=== PATIENT | male | born 1945 | race Caucasian/White ===

== ENCOUNTER 2023-09-13 08:17 | Emergency (ER) | payer MEDICARE, BC, SELFPAY ==
[2023-09-13] VITALS (16 sets, daily range): BP systolic 143–174; BP diastolic 90–101; PULSE 66–80; RESP 20; TEMP 36.6; O2SAT 88–99; BMI 19.8
--- NOTE | 2023-09-13 08:33 | ED_ITS ---
HPI - General Adult General Time Seen by Provider: 08:33 Date Seen: 09/13/23 Chief complaint: Dizziness/Vertigo Stated complaint: Dizziness, High BP Time Seen by Provider: 09/13/23 08:32 Source: patient Mode of arrival: ambulatory Limitations: no limitations History of Present Illness HPI narrative: Michael is a 77-year-old male past medical history includes hypertension and hyperlipidemia presents emergency department via private car with elevated blood pressure readings and dizziness. Patient states over the last couple days he has had episodic dizziness, this occurred once when he was standing a couple days ago, he explains it as changes in vision, with both eyes, going to one side versus the other, causing him to lean or be unsteady to that side, episodes last 10-15 minute, at one time he almost walked into the wall on the left. He woke up this morning and had it while sitting in bed, and while he got dressed, seemed to get better after 10-15 minutes, he walked downstairs with no difficulty, had a bowl of cereal and orange juice. Denies any difficulty with speaking or swallowing, he had this head fullness but no real headache. He ended up taking his blood pressure, 160/106 he then repeated it, 167/107, they call to make an appointment with his primary care and align a clinic, he was advised to come to the emergency department. Patient has not had anything like this in the past, denies any chest pain or shortness of breath, patient denies any recent illness, no congestion, ear pain or sore throat, patient denies any focal weakness, paresthesias or tingling. 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 Patient denies any changes with head movement. No changes in patient's vision at this time. Denies symptoms of lightheadedness, no changes with standing. No history of any CAD or stroke. Patient has had some bilateral tinnitus which is chronic. When symptoms arise it is not continuous, again no worsening of symptoms with head or body movements, does not triggered by anything. Patient has no symptoms at this time.. Related Data Home Medications Medication Instructions Recorded Confirmed apremilast 30 mg tablet (Otezla) 30 mg PO BID 09/13/23 09/13/23 atorvastatin 40 mg tablet 40 mg PO DAILY 09/13/23 09/13/23 lisinopril 10 mg tablet 10 mg PO DAILY 09/13/23 09/13/23 propranolol 10 mg tablet 10 mg PO PRN 09/13/23 09/13/23 sildenafil 50 mg tablet PO 09/13/23 Previous Rx's Medication Instructions Recorded meclizine 25 mg tablet 25 mg PO QID 3 days #12 tabs 09/13/23 Allergies Allergy/AdvReac Type Severity Reaction Status Date / Time Lyme Disease vaccine AdvReac Intermediate Verified 09/13/23 08:30 (recombinant O Review of Systems Status of ROS: Reports: 10 or more systems reviewed and unremarkable except as noted in History and below Exam Narrative: Exam Narrative: General: No obvious distress, sitting comfortably HEENT: Bilateral cerumen impaction, pupils equal round reactive to light, extraocular muscles intact, symmetrical smile, Oropharynx is clear and moist Neck: Supple, full range of motion Heart: Normal sinus rhythm S1-S2 Lungs: Clear to auscultation bilaterally Abdomen: Soft nontender bowel sounds present Muscle skeletal: +5 strength upper lower extremities [place]: No appreciable nystagmus noted, patient asymptomatic Neuro: Alert awake and oriented x3, no symptoms upon gait, no unsteadiness Cranial nerves 2-12 grossly intact Const: Vital Signs, click to edit/add: Vital Signs - 24 hr 09/13/23 08:23 09/13/23 08:52 Temperature 97.9 F Pulse Rate [Right Pulse Oximeter] 71 Pulse Rate [orthos tatic lying Pulse Oximeter] 69 Pulse Rate [orthos tatic sitting Puls e Oximeter] 72 Pulse Rate [orthos tatic standing Pul se Oximeter] 73 Respiratory Rate 20 Blood Pressure [Ri ght Upper Arm] 174/101 H Blood Pressure [or thostatic lying Le ft Arm] 157/90 H Blood Pressure [or thostatic sitting Left Arm] 161/93 H Blood Pressure [or thostatic standing Left Arm] 150/90 H Pulse Oximetry 99 Oxygen Delivery Me thod Room Air Course Course ED Course: AIDET performed, vitals show blood pressure 143/90, vitals otherwise normal, workup will include IV peripheral, will obtain orthostatics, TSH, point of care troponin, EKG, CBC, CMP and magnesium. Life-threatening differential diagnosis include CVA, other considerations is BPPV, labyrinthitis, Meniere's disease, vestibular neuritis, migraine, MS, otitis media, viral syndrome as well as all etiologies. No cranial nerve abnormalities, patient is able to ambulate with no unsteadiness, making posterior circulation stroke less likely, no findings on [place] for BPPV, pressure is normal at this time, no focal deficits on exam less likely vestibular neuronitis or labyrinthitis. Will rule out any toxic, metabolic, infectious causes. Patient is currently on no ototoxic drugs. No recent trauma. No medications to be given at this time. Patient and were in agreement. Reevaluation(s) Time of Reevaluation #1: 09:50 Reevaluation #1: Patient was updated on his EKG and lab results, EKG showed a normal sinus rhythm, bpm 69, possible left atrial enlargement, no ectopy or acute ST changes, no comparisons, CBC showed no leukocytosis or anemia, metabolic panel showed normal electrolytes and renal function, glucose mildly elevated at 140, point of care troponin was 0.00. Patient to go for further imaging CTA head and neck. Blood pressure has been stable, patient remains asymptomatic, plan would likely be to have patient take additional dose of lisinopril 10 mg if any elevated blood pressure readings at home. Time of Reevaluation #2: 10:34 Reevaluation #2: IMAGING: IMPRESSION: Unremarkable neck CTA. No significant carotid or vertebral artery stenosis or dissection. IMPRESSION: Unremarkable head CTA. No large vessel occlusion. Imaging was unremarkable, patient remained asymptomatic in the emergency department, discussed increasing dose of lisinopril to 20 mg as needed if patient continues to have elevated blood pressure readings at home, he should follow-up with primary care provider over the next 7-10 days or as scheduled, prescription for meclizine will be sent to his pharmacy, 25 mg every 4-6 hours as needed if dizziness persists and blood pressure readings are normal. Plan would be to discharge. Vital Signs Vital signs: Initial Vital Signs Temperature 97.9 F 09/13/23 08:23 Temperature Source Temporal Artery Scan 09/13/23 08:23 Pulse Rate 71 09/13/23 08:23 Pulse Rhythm Regular 09/13/23 08:23 Respiratory Rate 20 09/13/23 08:23 Blood Pressure 174/101 H 09/13/23 08:23 Blood Pressure Mean 125 H 09/13/23 08:23 Blood Pressure Position Sitting 09/13/23 08:23 Pulse Oximetry 99 09/13/23 08:23 Oxygen Delivery Method Room Air 09/13/23 08:23 Vital Signs Temperature 97.9 F 09/13/23 08:23 Pulse Rate 71 09/13/23 08:23 Respiratory Rate 20 09/13/23 08:23 Blood Pressure 174/101 H 09/13/23 08:23 Pulse Oximetry 99 09/13/23 08:23 Oxygen Delivery Method Room Air 09/13/23 08:23 Temperature 97.9 F 09/13/23 08:23 Pulse Rate 69 09/13/23 08:52 Respiratory Rate 20 09/13/23 08:23 Blood Pressure 157/90 H 09/13/23 08:52 Pulse Oximetry 99 09/13/23 08:23 Oxygen Delivery Method Room Air 09/13/23 08:23 Medical Decision Making Lab Data Labs: Lab Results 09/13/23 09/13/23 Range/Units 08:52 08:57 WBC 7.90 (4.50-11.00) K/uL RBC 4.67 (4.30-5.90) m/uL Hgb 14.5 (13.5-17.5) gm/dL Hct 45.1 (37.0-53.0) % MCV 97 (80-100) fL MCH 31 (26-34) pg MCHC 32 (32-36) gm/dL RDW Coeff of Peter 12.7 (11.5-15.5) % Plt Count 194 (140-440) K/uL Neut % (Auto) 78.7 H (42.0-72.0) % Lymph % (Auto) 12.2 L (20-44) % [place] % (Auto) 7.1 (0.0-11.0) % Eos % (Auto) 1.6 (0.0-7.0) % Baso % (Auto) 0.3 (0.0-3.0) % Neut # (Auto) 6.20 (1.7-7.0) K/uL Lymph # (Auto) 1.00 (0.90-2.90) K/uL [place] # (Auto) 0.60 (0.00-0.90) K/UL Eos # (Auto) 0.13 (0.00-0.50) K/uL Baso # (Auto) 0.02 (0.00-0.30) K/uL Abs Immat Gran (auto) 0.01 (0.00-0.30) K/uL Imm/Tot Granulo (auto) 0.1 % Sodium 137 (135-149) mmol/L Potassium 4.0 (3.6-5.1) mmol/L Chloride 102 (96-114) mmol/L Carbon Dioxide 29 (20-32) mmol/L Anion Gap 6 L (7-15) mEq/L BUN 20 (7-30) mg/dL Creatinine 1.2 (0.5-1.5) mg/dL Estimated Creat Clear 50.93 Estimated GFR 62 ml/min Glucose 140 H (60-115) mg/dL Calcium 9.3 (8.4-10.6) mg/dL Magnesium 2.3 (1.5-2.6) mg/dL Total Bilirubin 1.1 (0.1-1.5) mg/dL AST 31 (12-35) U/L ALT 20 (4-50) U/L Alkaline Phosphatase 97 (40-150) U/L Total Protein 7.8 (6.0-8.3) g/dL Albumin 4.3 (3.3-5.0) g/dL TSH 0.902 (0.270-4.20) uIU/mL POC Troponin I 0.00 L (0.01-0.04) ng/ml Discharge Plan Discharge Clinical Impression: Elevated blood pressure reading, Dizziness Patient Disposition: Home, Self-Care Condition: Improved Instructions: Dizziness (ED) Additional Instructions: To follow-up with primary care provider as needed or over the next 7-10 days for ER follow-up and blood pressure recheck. To take additional 10 mg of lisinopril if continue readings of elevated blood pressure at home, keep a log of blood pressures, morning and at night. If dizziness is persistent, even though normal blood pressure reading, take meclizine 25 mg as needed, can be taken every 4-6 hours. Return if worsening symptoms. Activity Level: No Restrictions Prescriptions: New meclizine 25 mg tablet 25 mg PO QID 3 Days Qty: 12 0RF No Action atorvastatin 40 mg tablet 40 mg PO DAILY sildenafil 50 mg tablet PO propranolol 10 mg tablet 10 mg PO PRN lisinopril 10 mg tablet 10 mg PO DAILY Otezla 30 mg tablet 30 mg PO BID Follow Up/Referrals: Kev Roche MD [Primary Care Provider] - Stand Alone Forms: [facility] Info Instructions
[2023-09-13 09:07] LABS: Basophils Absolute Auto 0.02 K/uL (0.00-0.30); Basophils Percent Auto 0.3 % (0.0-3.0); Eosinophils Absolute Auto 0.13 K/uL (0.00-0.50); Eosinophils Percent Auto 1.6 % (0.0-7.0); Hematocrit 45.1 % (37.0-53.0); Hemoglobin* 14.5 gm/dL (13.5-17.5); Immature Granulocytes Abs Auto 0.01 K/uL (0.00-0.30); Immature Granulocytes Pct Auto 0.1 %; Lymphocytes Percent Auto 12.2 % (20-44); Mean Corpuscular HGB Conc 32 gm/dL (32-36); Mean Corpuscular Hemoglobin 31 pg (26-34); Mean Corpuscular Volume 97 fL (80-100); Monocytes Percent Auto 7.1 % (0.0-11.0); Neutrophils Percent Auto 78.7 % (42.0-72.0); Platelet Count* 194 K/uL (140-440); RDW Coefficient of Variation % 12.7 % (11.5-15.5); Red Blood Count 4.67 m/uL (4.30-5.90)
[2023-09-13 09:08] LABS: Slide Review Reflex No
--- NOTE | 2023-09-13 09:09 | CRLHL7_ITS ---
For Patients: As a result of the Century Cures Act, medical imaging exams and procedure reports are released immediately into your electronic medical record. You may view this report before your referring provider. If you have questions, please contact your health care provider. INDICATION: Acute stroke, visual changes, dizziness. TECHNIQUE: CTA neck with contrast bolus tracking, 3D angiographic rendering using maximum intensity projection (MIP) and images permanently archived. FINDINGS: There is no significant carotid artery stenosis or dissection. There is no significant vertebral artery stenosis or dissection. The soft tissues of the neck are within normal limits. The cervical spine is in normal alignment. IMPRESSION: Unremarkable neck CTA. No significant carotid or vertebral artery stenosis or dissection. Please note that all CT scans at this facility use dose modulation, iterative reconstruction, and/or weight-based dosing when appropriate to reduce radiation dose to as low as reasonably achievable. Dictated by Kenneth Pinzon MD @ 09/13/2023 10:06:09 AM (Electronically Signed)
--- NOTE | 2023-09-13 09:09 | CRLHL7_ITS ---
For Patients: As a result of the Century Cures Act, medical imaging exams and procedure reports are released immediately into your electronic medical record. You may view this report before your referring provider. If you have questions, please contact your health care provider. INDICATION: Acute stroke, visual changes, dizziness. TECHNIQUE: CTA head with contrast bolus tracking, 3D angiographic rendering using maximum intensity projection (MIP) and images permanently archived. FINDINGS: There is normal opacification of the intracranial vasculature. There is no large vessel occlusion. No aneurysm is identified. IMPRESSION: Unremarkable head CTA. No large vessel occlusion. Please note that all CT scans at this facility use dose modulation, iterative reconstruction, and/or weight-based dosing when appropriate to reduce radiation dose to as low as reasonably achievable. Dictated by Kenneth Pinzon MD @ 09/13/2023 10:04:37 AM (Electronically Signed)
[2023-09-13 09:21] LABS: Albumin* 4.3 g/dL (3.3-5.0); Chloride* 102 mmol/L (96-114); Sodium* 137 mmol/L (135-149)
[2023-09-13 09:23] LABS: Anion Gap 6 mEq/L (7-15); Bilirubin Total* 1.1 mg/dL (0.1-1.5); Carbon Dioxide* 29 mmol/L (20-32); Creatinine* 1.2 mg/dL (0.5-1.5); Est. Creatinine Clearance* 50.93; Estimated Glomerular Filt Rate 62 ml/min
[2023-09-13 09:24] LABS: Alanine Aminotransferase* 20 U/L (4-50); Alkaline Phosphatase* 97 U/L (40-150); Aspartate Amino Transferase* 31 U/L (12-35); Blood Urea Nitrogen* 20 mg/dL (7-30); Calcium* 9.3 mg/dL (8.4-10.6); Glucose* 140 mg/dL (60-115); Magnesium* 2.3 mg/dL (1.5-2.6); Total Protein* 7.8 g/dL (6.0-8.3)
[2023-09-13 10:05] LABS: Thyroid Stimulating Hormone* 0.902 uIU/mL (0.270-4.20)
== END 2023-09-13 11:08 | disposition home or self-care (01) ==
PROVIDERS: Emergency Provider Student in an Organized Health Care Education/Training Program; PCP Family Medicine
DX: R42 Dizziness and giddiness (principal); R03.0 Elevated blood-pressure reading, without diagnosis of hypertension
CPT/HCPCS: 36415; 70496; 70498; 80053; 83735; 84443; 84484; 85025; 93005; 99283; 99284; 99285; Q9967